=== PATIENT | female | born 1970 | race Caucasian/White ===

== ENCOUNTER 2017-07-23 22:21 | Emergency (ER) | payer SELFPAY ==
[~2017-07-23] VITALS: Ht 165.1 cm; Wt 81.1 kg
[2017-07-23 23:16] LABS: HEMATOCRIT 41.8 % (36.0-46.0); MCH 30.1 PG (29.0-34.0); MCV 91.3 FL (83-99); MEAN PLAT.VOLUME 10.4 uM^3 (9.5-12.4); PLATELET COUNT 215 K/uL (156-360); RBC DIS.WIDTH-CV 13.1 % (11.8-14.6); RBC DIS.WIDTH-SD 43.5 % (39-53); RED BLOOD COUNT 4.58 M/uL (3.80-5.20); WHITE BLOOD COUNT 4.5 K/uL (4.1-10.2)
[2017-07-23 23:27] LABS: CHLORIDE 106 mEq/L (99-109); POTASSIUM 3.7 mEq/L (3.7-5.4); SODIUM 139 mEq/L (136-147)
[2017-07-23 23:29] LABS: GLUCOSE 95 mg/dL (70-99)
[2017-07-23 23:30] LABS: ANION GAP 13 MEQ/L (2-14)
[2017-07-23 23:34] LABS: UREA NITROGEN (BUN) 13 mg/dL (9-23)
[2017-07-23 23:36] LABS: GFR ESTIMATE (CALCULATED) > 59 mL/min/
[2017-07-24 00:44] LABS: TROP-I INTERPRETATION NEGATIVE; TROPONIN-I < 0.01 ng/mL (0.0-0.30)
[2017-07-24] MEDS ORDERED: PROVENTIL HFA6.7 GM IH (02:53)
[2017-07-24 03:18] VITALS: BP 125/71
== END 2017-07-24 03:26 | disposition home or self-care (01) ==
LOC: EME 22:21
DX: J40 Bronchitis, not specified as acute or chronic (principal); J02.9 Acute pharyngitis, unspecified; F17.200 Nicotine dependence, unspecified, uncomplicated
CPT/HCPCS: 71020; 80048; 84484; 85027; 93005; 94640; 94640 76; 99281; 99285; J1100